=== PATIENT | male | born 1960 | race Caucasian/White ===

== ENCOUNTER → 2025-02-25 | Outpatient (CLI) | payer MEDICARE, MEDICAID, SELFPAY ==
[2025-02-25 10:54] LABS: Alanine Aminotransferase 37 U/L (10-49); Albumin, Serum 4.5 gm/dL (3.4-4.8); Alkaline Phosphatase 47 U/L (46-116); Aspartate Amino Transferase 30 U/L (0-34); Bilirubin,Direct 0.6 mg/dL (0.0-0.3); Bilirubin,Total 1.7 mg/dL (0.3-1.2); Cardiac Risk Estimate 2.7 RATIO (4.0-6.7); Cholesterol 77 mg/dL (132-200); HDL Cholesterol 29 mg/dL (40-60); LDL Cholesterol,Calculated 28 mg/dL (0-130); Total Protein 7.6 gm/dL (5.7-8.2); Triglycerides 98 mg/dL (30-150)
== END | disposition home or self-care (01) ==
LOC: COPL 08:54
PROVIDERS: PCP Registered Nurse Community Health; Referring Provider Internal Medicine Cardiovascular Disease; Visit Provider Internal Medicine Cardiovascular Disease
DX: E78.5 Hyperlipidemia, unspecified (principal); I10 Essential (primary) hypertension
CPT/HCPCS: 36415; 80061; 80076

== ENCOUNTER 2025-04-24 06:43 | Emergency (ER) | payer MEDICARE, MEDICAID, SELFPAY ==
[2025-04-24 06:45] VITALS: BMI 35.9
[2025-04-24 07:02] VITALS: BP 129/78; PULSE 79; RESP 18; TEMP 36.6; O2SAT 98
--- NOTE | 2025-04-24 07:52 | PD.EDSKIN ---
ED Skin Abcess FB-RME/HPI General Chief complaint: Skin/Abscess/Foreign Body Stated complaint: SORE ON LEFT FOOT Time Seen by Provider: 04/24/25 07:05 Arrival date/time: 04/24/25 06:43 This is a 65-year-old male that comes into the emergency room with complaints of rash to the top of his left foot. Area is approximately 5 cmx 5cm. Patient was treated for ringworm by his primary provider. Patient was put on ketoconazole. Patient states that he has been on his treatment for the last 2 weeks and it has not not had improvement. Patient does have a history of diabetes, high blood pressure, hyperlipidemia. Patient states his blood sugars been controlled he has it documented in a journal. He does not understand why the medications not working patient states he has a follow-up appointment with his primary provider in 2 days. Related Data Home Medications ?Medication ?Instructions ?Recorded ?Confirmed apixaban 5 mg tablet (Eliquis) 5 mg PO BID #0 tabs 05/05/16 01/22/24 lisinopril 20 mg tablet 40 mg PO QDAY #0 tabs 05/05/16 01/22/24 amlodipine 10 mg tablet 10 mg PO QDAY 01/22/24 01/22/24 metformin 1,000 mg tablet 1,000 mg PO QDAY 01/22/24 01/22/24 simvastatin 40 mg tablet 40 mg PO HS 01/22/24 01/22/24 Previous Rx's ?Medication ?Instructions ?Recorded cetirizine 10 mg tablet 10 mg PO QDAY #30 tabs 12/23/18 fluconazole 150 mg tablet 150 mg PO QDAY #1 tab 04/24/25 Allergies Allergy/AdvReac Type Severity Reaction Status Date / Time No Known Allergies Allergy Verified 04/24/25 06:44 Review of Systems Review of Systems Systems Reviewed: All systems reviewed, normal except as documented Past Medical History Surgical History OTHER SURGICAL HX: Pacemaker implantation ED Exam Narrative Physical exam: VITAL SIGNS: Reviewed. GENERAL APPEARANCE: Alert and interactive, follows commands, no acute distress HEAD AND FACE: Non-traumatic. ENT: PERRL, conjuctiva pink and clear, eyelid no trauma, Mucous membrane moist. NECK: Supple, nontender, no nuchal rigidity. CHEST: No tenderness, no crepitus, no paradoxical movement, no retractions. LUNGS: breathing even and unlabored HEART: Regular rate, cap refill less than 2 seconds ABDOMEN: Soft, nondistended, no guarding, nontender, no rebound, no masses, NEUROLOGICAL: Gross motor function intact sensory function intact, Appropriate for age. MUSCULOSKELETAL: low back nontender, full range of motion. EXTREMITIES: No redness no swelling no skin breakdown on bilateral foot and leg. Distal neurovascular status intact bilateral foot SKIN: Color pink, dry, red scaly slight raised rash to dorsal foot central clearing Course Quality Measures none Orders Category Date Time Status Fluconazole [Diflucan] Med 04/24/25 07:46 Discontinued 150 mg PO X1 ONE Vital Signs Vital signs: Vital Signs Temperature 97.8 F 04/24/25 07:02 Pulse Rate 79 04/24/25 07:02 Respiratory Rate 18 04/24/25 07:02 Blood Pressure 129/78 04/24/25 07:02 Pulse Oximetry (%) 98 04/24/25 07:02 Oxygen Delivery Method Room Air 04/24/25 07:02 Skin / Abscess / Foreign Body MDM Narrative MDM Narrative:: Patient failed outpatient topical treatment. I explained the patient at length that I will give him a dose of fluconazole 150 mg now. Patient is to follow-up with his primary provider as scheduled. I will give patient an additional dose of fluconazole 150 mg by mouth to be taken after another week. I explained this to the patient. I told patient that if his symptoms do not get worse he may need to get a biopsy of that area. No surrounding your erythema. It area does not appear to be infected. Area just appears to look like a fungal rash with satellite lesions. Patient data External records reviewed:: [facility] previous records Clinical information provided by:: patient Social determinants that could affect healthcare access:: none Patient has the following chronic illnesses:: see hpi How is presenting disease/condition affected by chronic disease/condition?: no chronic disease Evaluation data The following diagnostics were reviewed and interpreted by me:: other (specify) (none ) Lab and/or radiology exams considered but not ordered:: none Interpretation Summary: see note Medications / Prescriptions Medications or Prescriptions considered but not ordered:: none Medication administrations:: Medication Administration History Discontinued Medications Fluconazole (Fluconazole 150 Mg Tablet) 150 mg PO X1 ONE Stop: 04/24/25 07:47 Last Admin: 04/24/25 08:18 Dose: 150 mg Documented By: DIANA rodney Consultations Consultation(s) initiated? (list below): No Diagnosis Skin/Abscess Differential Diagnosis: abscess of skin or subcutaneous tissue, viral exanthem, dermatophytosis, urticaria, allergic reaction to drug, cellulitis, impetigo, contact dermatitis and other (ring worm ) Most likely diagnosis given after review of the tests above:: fungal infection Admission Indicated Admission indicated?: not indicated Admission Request Was there a request for admission?: No Disposition Plan Disposition Plan: Discharge Discharge Attestation Discharge Attestation: The patient and all family members were given an opportunity to ask questions and understood the discharge instructions. Discharge instructions specifically effects, indications for sooner follow up or return to the emergency department, and the expected course of current diagnosis. Patient condition: Stable Discharge Plan Plan Patient Disposition: HOME (Self Care) Patient condition on transfer: Stable Prescriptions/Referrals Prescriptions/Med Rec: New fluconazole 150 mg tablet 150 mg PO QDAY Qty: 1 0RF Rx Instructions: medication not to bee taken until 05/01/25 No Action lisinopril 20 MG tablet 40 mg PO QDAY Qty: 0 Eliquis 5 MG tablet 5 mg PO BID Qty: 0 cetirizine 10 mg tablet 10 mg PO QDAY Qty: 30 0RF simvastatin 40 mg tablet 40 mg PO HS Patient Comments: TAKE 1 TABLET BY MOUTH EVERY DAY IN THE EVENING FOR 90 DAYS amlodipine 10 mg tablet 10 mg PO QDAY Patient Comments: TAKE 1 TABLET BY MOUTH EVERY DAY FOR 90 DAYS metformin 1,000 mg tablet 1,000 mg PO QDAY Patient Comments: TAKE 1 TABLET BY MOUTH ONCE A DAY WITH A MEAL Problem List Clinical Impression: Tinea corporis Patient/Caregiver Discharge Instructions Discharge Activity: activity as tolerated Education Materials: ED Fungal Skin Infection (Tinea) Additional Instructions: Please keep scheduled appointment with primary provider. Do not take the additional dose of fluconazole until 05/01/2025. You got a dose today. Come back to the emergency room if symptoms change or worsen. Print Language: Romanian Stand Alone Forms: Lora Award Info., Patient Portal Info Letter PA/CLINICAL DATA RESEARCH Supervising Physician TESSIE/CLINICAL DATA RESEARCH Supervising Physician: pilar
[2025-04-24] MEDS: FLUCONAZOLE 150 MG TABLET PO (08:18)
== END 2025-04-24 08:56 | disposition home or self-care (01) ==
LOC: SERX 08:04
PROVIDERS: Emergency Provider Nurse Practitioner Family
DX: B35.4 Tinea corporis (principal); E11.9 Type 2 diabetes mellitus without complications; E78.5 Hyperlipidemia, unspecified
CPT/HCPCS: 99283; A9270

== ENCOUNTER → 2025-04-29 | Outpatient (CLI) | payer MEDICARE, MEDICAID, SELFPAY ==
[2025-04-29 09:03] LABS: Misc Send Out* See Sep Rpt
== END | disposition home or self-care (01) ==
LOC: COPL 08:44
DX: E11.65 Type 2 diabetes mellitus with hyperglycemia (principal)
CPT/HCPCS: 83036

== ENCOUNTER → 2025-05-24 | Outpatient (CLI) | payer MEDICARE, MEDICAID, SELFPAY ==
[2025-05-24 08:53] LABS: Quantiferon-TB* See Sep Rpt
[2025-05-24 09:22] LABS: Basophils # (Auto) 0.1 Thou/mm3 (0.0-0.2); Basophils % (Auto) 1 % (0-2.5); Eosinophils # (Auto) 0.5 Thou/mm3 (0.0-0.5); Eosinophils % (Auto) 4 % (0-10); Hematocrit 48.5 % (41.0-53.0); Hemoglobin 15.7 g/dL (13.5-16.0); Immature Granulocytes Auto 0.04 Thou/mm3 (0.00-0.00); Lymphocytes # (Auto) 2.5 Thou/mm3 (1.0-4.8); Lymphocytes % (Auto) 23 % (10-50); Mean Corpuscular HGB Conc 32.4 g/dl (31.0-37.0); Mean Corpuscular Hemoglobin 26.9 pg (25.0-35.0); Mean Corpuscular Volume 83 fL (80-100); Monocytes # (Auto) 1.2 Thou/mm3 (0.0-0.8); Monocytes % (Auto) 11 % (0-12); Neutrophils # (Auto) 6.6 Thou/mm3 (1.8-7.7); Neutrophils % (Auto) 61 % (37-80); Nucleated Red Blood Cell # 0.00 Thou/mm3 (0.00-0.00); Nucleated Red Blood Cell % 0 /100 WBC (0); Platelet Count 244 Thou/mm3 (140-440); RDW Standard Deviation 41.1 fL (35.1-43.9); Red Blood Count 5.83 Miln/mm3 (4.50-5.90); White Blood Count 10.9 Thou/mm3 (3.8-10.6)
[2025-05-24 09:41] LABS: Glucose Estimated Average 128 mg/dL (80-131); Hemoglobin A1C 6.1 % Hgb (4.8-6.0)
[2025-05-24 09:55] LABS: Alanine Aminotransferase 25 U/L (10-49); Albumin, Serum 4.6 gm/dL (3.4-4.8); Albumin/Globulin Ratio 1.6 (1.2-2.2); Alkaline Phosphatase 56 U/L (46-116); Anion Gap 12 (7-16); Aspartate Amino Transferase 20 U/L (0-34); BUN/Creatinine Ratio 16 Ratio (12-20); Bilirubin,Total 1.0 mg/dL (0.3-1.2); Blood Urea Nitrogen 16 mg/dL (9-23); Calcium 9.5 mg/dL (8.3-10.6); Calcium (Corrected) 9.5 mg/dL (8.5-10.1); Carbon Dioxide 25.3 mMol/L (20.0-31.0); Chloride 104 mMol/L (98-107); Creatinine (Component) 1.0 mg/dL (0.6-1.3); Globulin 2.9 gm/dL (2.3-3.5); Glucose 102 mg/dL (74-106); Osmolality,Calculated 282 (275-295); Potassium 4.2 mMol/L (3.4-5.1); Sodium 141 mMol/L (136-145); Total Protein 7.5 gm/dL (5.7-8.2); eGFR > 60 See Note
[2025-05-24 12:35] LABS: Cocci Serology, IgM Negative (Negative)
[2025-05-25 12:36] LABS: Cocci Serology, IgG Negative (Negative)
== END | disposition home or self-care (01) ==
LOC: COPL 08:28
PROVIDERS: PCP Registered Nurse Community Health; Referring Provider Registered Nurse Community Health; Visit Provider Registered Nurse Community Health
DX: I48.91 Unspecified atrial fibrillation (principal); E11.65 Type 2 diabetes mellitus with hyperglycemia; I10 Essential (primary) hypertension; L98.8 Other specified disorders of the skin and subcutaneous tissue; R53.83 Other fatigue; Z11.1 Encounter for screening for respiratory tuberculosis
CPT/HCPCS: 36415; 80053; 83036; 85025; 86331; 86480; 86635